=== PATIENT | male | born 2000 | race Two or more races ===

== ENCOUNTER 2024-12-31 23:20 | Emergency (ER) | payer BC ==
[~2024-12-31] VITALS: Ht 180.3 cm; Wt 99.8 kg
[2025-01-01] MEDS ORDERED: MIDAZOLAM HCL/PF 5 MG/ML VIAL IV STA (01:45)
[2025-01-01] MEDS ORDERED: RINGERS SOLUTION,LACTATED 1,000 ML IV ONE (01:45)
[2025-01-01] MEDS ORDERED: FLUMAZENIL 0.5 MG/5 ML ML IV ONE (02:33)
[2025-01-01] MEDS ORDERED: KETO10TA2 PO (02:55)
== END 2025-01-01 04:36 ==
LOC: ER 23:23
DX: S43.004A Unspecified dislocation of right shoulder joint, initial encounter (principal); W18.39XA Other fall on same level, initial encounter; Y93.89 Activity, other specified; Y92.413 State road as the place of occurrence of the external cause